=== PATIENT | female | born 1980 | race Caucasian/White ===

== ENCOUNTER 2025-08-11 06:03 | Day surgery (SDC) | payer OTHER, SELFPAY ==
--- OUTSIDE RECORDS SUMMARY | 2025-07-17 11:30 | XMS_ITS ---
Author Organization [facility] [place] ([address]) Address [address] [place] [address] Care Team Providers Care Regional Ehs Manager Name Role Phone [facility]o [facility] Primary [facility] Provider Cassia Celine Bliss Unavailable [phone] Wilmar Hong [phone] REASON FOR VISIT BHRT Lab Review Social History Sex Assigned At : Social History Observation Description Sex Assigned At Female Encounters Encounter Location Date Provider Diagnosis [facility] [place] ([address]) [address] [place] [address] 07/17/2025 Wilmar Hong Plan Of Treatment Next Appt Details Provider Name:Wilmar Hong , 08/19/2025 08:30:00 AM, [place], [address], Provider Name:Wilmar Hong , 08/26/2025 08:30:00 AM, [place], [address], Provider Name:Wilmar Hong , 09/02/2025 08:40:00 AM, [place], [address], Provider Name:Celine Peña , 10/14/2025 08:30:00 AM, [place], [address], Progress Notes * Alisa HERNANDEZDOB:1980 (45 yo F)Acc No.[id number]:07/17/2025 BHRT Patient: Alisa ABDI Provider: Lam Hong MD :1980 A ge:45 Y S ex:Female Date:07/17/2025 Address:[address] [place] [address] [phone] Pcp:Lucille Aragon [facility] Subjective: * Chief Complaints: * 1 . BHRT Lab Review. * Medical History: Objective: * Vitals: Assessment: Plan: * Treatment: * Billing Information: * Visit Code: * Procedure Codes: * Electronic signature of Oziel Hong MD, FAAAAI on 08/11/2025 at 06:07 AM GLOBAL PRODUCT MANAGER Sign off status: Pending * Provider: Lam Hong MD Date: 09/16/2024 Generated for Wilma roland/Massiel/eTransmitting on: 10/12/2024 06:07 AM GLOBAL PRODUCT MANAGER
--- OUTSIDE RECORDS SUMMARY | 2025-07-17 11:30 | XMS_ITS ---
Author Organization [facility] [place] ([address]) Address [address] [place] [address] Care Team Providers Care Internal Review And Audit Compliance Name Role Phone Margo DIRECTOR OF DISTANCE LEARNINGLoryLucille Primary Care Provider Cassia Celine Bliss Unavailable [phone] Wilmar Hong Unavailable [phone] REASON FOR VISIT BHRT Pellet Insertion #, Consent forms signed Social History Sex Assigned At : Social History Observation Description Sex Assigned At Female Problems Problem Type SNOMED Code ICD Code Onset Dates Problem Status W/U Status Risk Notes Problem Hypothyroidism (31063715) Hypothyroidism, unspecified (E03.9) Active confirmed Problem Vitamin D deficiency (22201471) Vitamin D deficiency, unspecified (E55.9) Active confirmed Encounters Encounter Location Date Provider Diagnosis [facility] ([address]) [address] [place] [address] 07/17/2025 Wilmar Hong Abnormal weight gain R63.5 ; Hormone replacement therapy Z79.890 ; Irritability and anger R45.4 ; Other amnesia R41.3 ; Hypothyroidism, unspecified E03.9 and Vitamin D deficiency, unspecified E55.9 Assessments Encounter Date Diagnosis (ICD Code) Assessment Notes Treatment Notes Treatment Clinical Notes Section Notes 07/17/2025 Abnormal weight gain (ICD-10 - R63.5) 07/17/2025 Hormone replacement therapy (ICD-10 - Z79.890) Pellet Insertion # today, Post-pellet labs due in 14 weeks, or around Pellet # due in 4 months or around Placed today 07/17/2025 Irritability and anger (ICD-10 - R45.4) 07/17/2025 Other amnesia (ICD-10 - R41.3) 07/17/2025 Hypothyroidism, unspecified (ICD-10 - E03.9) 07/17/2025 Vitamin D deficiency, unspecified (ICD-10 - E55.9) Plan Of Treatment Treatment Notes Assessment Notes Hormone replacement therapy Pellet Insertion # today, Post-pellet labs due in 14 weeks, or around Pellet # due in 4 months or around Placed today Next Appt Details Follow Up: 14 weeks, 16 week s, Reason: BHRT Post-Pellet Labs,BHRT Pellet Insertion Provider Name:Wilmar Hong , 08/19/2025 08:30:00 AM, [place], [address], Provider Name:Wilmar Hong , 08/26/2025 08:30:00 AM, [facility] [place], [address], Provider Name:Wilmar Hong , 09/02/2025 08:40:00 AM, [facility] [place] [address] [place], [address], Provider Name:Celine Marilynn Peña , 10/14/2025 08:30:00 AM, [facility] [place] [address], [address], Progress Notes * Alisa HERNANDEZDOB:1980 (45 yo F)Acc No.[id number]:07/17/2025 EP Pellet Insertion Patient: Alisa ABDI Provider: Lam Hong MD :1980 A ge:45 Y S ex:Female Date:07/17/2025 Address:[address] [place] [address], [phone] Pcp:RENÉE Negrete Subjective: * Chief Complaints: * 1 . BHRT Pellet Insertion #. 2. Consent forms signed. * HPI: * Introduction: HPI: year-old WF on BHRT, here for pellet #. S ee CDSS L ast pellet was D IM I odine O ther Supplements T [place], she reports no fevers, chills, night sweats or other constitutional symptoms. The risks, benefits & alternatives were discussed regarding available treatment options. A treatment path was determined after reviewing the patients medical records, our verbal discussions and via joint decision-making Consents for our planned treatments were signed and are on file . * Medical History: Objective: * Vitals: Assessment: * Assessment: 1. H ormone replacement therapy - Z79.890 (Primary) 2 . A bnormal weight gain - R63.5 3 . I rritability and anger - R45.4 4 . O ther amnesia - R41.3 5 . H ypothyroidism, unspecified - E03.9 6 . V itamin D deficiency, unspecified - E55.9 Plan: * Treatment: * Follow Up: 1 4 weeks, 16 weeks (Reason: BHRT Post-Pellet Labs,BHRT Pellet Insertion) * Billing Information: * Visit Code: * Procedure Codes: 74832 Biote Female Pellet Insertion Procedure. QU601 Biote Expanded Female Post Pellet if TX Thyroid HRT. * Electronic signature of Patradha Hong MD, FAAAAI on 08/11/2025 at 06:06 AM REGISTERED NURSE AMBULATORY Sign off status: Pending * Provider: Lam Hong MD Date: 09/16/2024 Generated for Melissai luan/Massiel/Reginalditting on: 10/12/2024 06:06 AM REGISTERED NURSE AMBULATORY History and Physical Notes * HPI (History of Present Illness) Category Sub-Category Detail Notes Category Not es *Introduction HPI: year-old WF on B HRT, here for pellet #. See CDSS Last pellet was DIM Iodine Other Supplements Today, she reports no fevers, chills, night sweats or other constitutional symptoms The risks, benefits & alternatives were discussed regarding available treatment options. A treatment path was determined after reviewing the patients medical records, our verbal discussions and via joint decision-making Consents for our planned treatments were signed and are on file
[2025-08-06 11:37] VITALS: BMI 32.0
--- NOTE | 2025-08-06 11:55 | SUR.PREOP ---
[facility] has started construction of its new state of the art ER which will open Spring 2026. With this, we anticipate parking may be a challenge for some our surgical patients and families. Parking spaces are limited but are available for all Surgical, obstetrics, and ER patients sharing this lot. If you arrive and find you are having a hard time finding a parking space, please note that we understand the challenges, please drive around the hospital and park near Hospital Entrance 1. When you enter this entrance, you can ask a volunteer to direct or take you back to the surgical waiting area to check in. We appreciate everyone?s understanding of these expected challenges while we build for your future. Report to the Outpatient Waiting Room, entrance under the green pavilion located off [address], at time ____6am___ on date ___08/11/25____. Planned Procedure Time: ____730____.? Time changes happen often and if your time is changed the preop area will call you the afternoon before. - You and your visitor will be asked to self-screen and do not enter if you have any COVID symptoms. Please call surgeon if you need to reschedule. - A mask is optional within the hospital at this time. Patients may have clear liquids (water, carbonated beverages, clear teas, apple juice) until 3 hours prior to surgery with a maximum of 20 ounces. - No food from midnight until time of surgery and no smoking, or chewing tobacco (or any form of nicotine). No chewing gum, candy or mints. Take only the following medications with a SIP of water on the morning of surgery: NA DO NOT STOP ANY OF YOUR OTHER PRESCRIPTION MEDICATIONS PRIOR TO SURGERY EXCEPT THE FOLLOWING Hold all vitamins and supplements for 3 days per anesthesiologist. stop 08/08/25 multi vitamin Medications to discontinue per physician NA Date to take last dose Please no make-up, nail turkmen, hairspray, perfume, deodorant, or body powder the day of surgery.? No jewelry (including any body piercings) or valuables the day of surgery, leave them at home.? Please take a shower or bath the night before, or the morning of, surgery with an antibacterial soap.? Wear comfortable, loose fitting clothing.? Children are encouraged to wear pajamas. - Jewelry must be removed prior to entering the operating room.? Rings and piercings that are not removed may be cut off. - The hospital will not accept responsibility for valuables.? - Please leave all valuables, including medications, at home the day of surgery. If you are going home after surgery, a licensed drivers license examiner must drive you home.? - NO public transportation without another adult if you receive anesthesia. - We recommend that an adult stay with you for 24 hours following discharge. - We also recommend that you do not drive, make important decision, drink alcoholic beverages, or take any drugs that were not prescribed by your health care provider for at least 24 hours after your discharge time. Follow any additional instructions given to you from your surgeon. Telephone instructions given to patient ____and asked if any additional questions and then verbalized understanding. Patient advised to call surgeon office or pre surgery nurse liaison [phone] if any additional questions.
--- OUTSIDE RECORDS SUMMARY | 2025-08-11 06:06 | XMS_ITS | Encounter Summary ---
Author Organization [facility] Address [address] [place] [address] Care Team Providers Care Bottling Line Attendant Name Role Phone Sharron Perla MD Primary Care Provider [phone] Landry Mendoza NP Primary Care Provider + Lucille Aragon [facility] Primary Care Provider + Encounter Details Date Type Department Care Team (Late st Contact Info) Description 06/05/2022 BillMyParentst Message Enc [facility] - [place] [address] [place] [address] [phone] Bj Ann MD [address] [place], [place] [address] [phone] Question Social History Tobacco Use Types Packs/Day Years Used Date Smoking Tobacco: Former Smokeless Tobacco: Never Comments:former smoker Alcohol Use Standard Drinks/Week Comments Not Currently 0 (1 standard drink = 0.6 oz pur e alcohol) NA PHQ-2 Answer Date Recorded PHQ-2 Score - If the patient scores above 3, please move on to questions 3-9 0 05/30/2022 Comments No Sex and Gender Information Value Date Recorded Sex Assigned at Female 05/10/2023 10:06 AM CDT Legal Sex Female 8:16 PM CDT Gender Identity Female 05/10/2023 10:06 AM CDT Sexual Orientation Straight 05/10/2023 10 :06 AM CDT COVID-19 Exposure Response Date Recorded In the last 10 days, have yo u been in contact with someone who was confirmed or suspected to have Coronavirus/COVID-19? No / Unsure 05/30/2022 1:11 PM CDT documented as of this encounter Plan of Treatment Upcoming Encounters Date Type Department Care Team (Late st Contact Info) Description 09/01/2025 8:00 AM CENTRAL OFFICE MAINTAINER Appointment [facility] [address] [place], [place] [phone] Lucille Aragon, [facility]- [address] [facility], [address] [place] [address] documented as of this encounter Visit Diagnoses Not on filedocumented in this encounter Care Teams Bottling Line Attendant Relationship Specialty Start Date End Date Sharron Perla MD PCP - General FAMILY PRACTICE 05/22/19 11/28/22 Landry Mendoza NP [facility] [place] [address] PCP - General UNKNOWN PHYSICIAN SPECIALTY 11/29/22 Lucille Aragon, [facility]- [address] [place] [address] PCP - General NURSE PRACTITIONER 04/11/23 documented as of this encounter
--- OUTSIDE RECORDS SUMMARY | 2025-08-11 06:06 | XMS_ITS | Encounter Summary ---
Author Organization [facility] Address [address] [place] [address] Care Team Providers Care Sorting And Folding Supervisor Name Role Phone Lucille Aragon [facility] Primary Care Provider + Encounter Details Date Type Department Care Team (Late st Contact Info) Description 04/18/2023 [email or web address] [address] [place] [address] Lucille Aragon, [facility] [address] [facility], [address] [place] [address] Question Social History Tobacco Use Types Packs/Day Years Used Date Smoking Tobacco: Former Smokeless Tobacco: Never Comments:former smoker Alcohol Use Standard Drinks/Week Comments Not Currently 0 (1 standard drink = 0.6 oz pur e alcohol) NA PHQ-2 Answer Date Recorded Patient Health Questionnaire-2 Score 0 04/11/2023 Comments No Sex and Gender Information Value Date Recorded Sex Assigned at Female 05/10/2023 10:06 AM CDT Legal Sex Female 8:16 PM CDT Gender Identity Female 05/10/2023 10:06 AM CDT Sexual Orientation Straight 05/10/2023 10 :06 AM CDT documented as of this encounter Plan of Treatment Upcoming Encounters Date Type Department Care Team (Late st Contact Info) Description 09/01/2025 8:00 AM DEPUTY SHERIFF Appointment [facility] [address] [place], [place] [phone] Lucille Aragon, [facility] [address] [facility], [address] [place] [address] documented as of this encounter Visit Diagnoses Not on filedocumented in this encounter Care Teams Sorting And Folding Supervisor Relationship Specialty Start Date End Date Lucille Aragon, [facility] [address] [place] [address] PCP - General NURSE PRACTITIONER 04/11/23 documented as of this encounter
--- OUTSIDE RECORDS SUMMARY | 2025-08-11 06:06 | XMS_ITS | Encounter Summary ---
Author Organization [facility] Address [address] [place] [address] Care Team Providers Care Sew Out Operator Name Role Phone Lucille Aragon [facility] Primary Care Provider + Encounter Details Date Type Department Care Team (Late st Contact Info) Description 04/12/2023 [employer] [facility] [address] [place] [address] Lucille Aragon, [facility] [address] [facility], [address] [place] [address] Lab results Social History Tobacco Use Types Packs/Day Years [...] st Contact Info) Description 09/01/2025 8:00 AM LEAD SEWAGE PLANT OPERATOR Appointment [facility] [address] [place], [place] [phone] Lucille Aragon, [facility] [address] [facility], [address] [place] [address] documented as of this encounter Visit Diagnoses Not on filedocumented in this encounter Care Teams Sew Out Operator Relationship Specialty Start Date End Date Lucille Aragon, [facility] [address] [place] [address] PCP - General NURSE PRACTITIONER 04/11/23 documented as of this encounter
--- OUTSIDE RECORDS SUMMARY | 2025-08-11 06:07 | XMS_ITS | Encounter Summary ---
Author Organization [facility] Address [address] [place] [address] Care Team Providers Care Mathematics Instructor Name Role Phone Unavailable Primary Care Provider Unavailabl e Encounter Details Date Type Department Care Team (Late st Contact Info) Description 05/27/2025 Lab Requisition [facility] - DermPath Lab [address] [facility], [place] [phone] Silvia Mane MD [address] [facility] [address] [place] [address] Basal cell carcinoma of skin of scalp and neck Social History Tobacco Use Types Packs/Day Years Used Date Smoking Tobacco: Never Assessed Comments Unknown Sex and Gender Information Value Date Recorded Sex Assigned at Not on file Legal Sex Female 5:03 PM MOBILE HEAVY EQUIPMENT MECHANIC Gender Identity Not on file Sexual Orientation Not on file documented as of this encounter Plan of Treatment Not on file documented as of this encounter Procedures Procedure Name Priority Date/Time Associated Diagnosis Comments DERMATOPATHOLOGY Routine 05/27/2025 11:3 0 AM CDT Basal cell carcinoma of skin of scalp and neck documented in this encounter Results * DERMATOPATHOLOGY (05/27/2025 11:30 AM CDT) Case Report Dermatopathology Report Case: [id number] Authorizing Provider: Silvia Mane MD Collected: 05/27/2025 11:30 AM Ordering Location: [facility] - Received: 05/28/2025 01:43 PM DermPath Lab Pathologist: Hali Parada MD Specimen: Skin, left clavicle skin 3:12 PM CDT DERMATOPATHOLOGY LABORATORY Final Diagnosis Specimen A. SKIN, left clavicle skin: DERMAL SCAR RESIDUAL BASAL CELL CARCINOMA NOT IDENTIFIED (L90.5) 3:12 PM CDT DERMATOPATHOLOGY LABORATORY at 1512 CDT Clinical History BCC. Check margins 3:12 PM CDT DERMATOPATHOLOGY LABORATORY Gross Description Specimen A: Received is one formalin filled container labeled with the patient's name and designated left clavicle skin.The specimen consists of an ellipse measuring 32x9x7 mm and is oriented with the suture/notch at the 12 o'clock position not labeled on the requisition. The 12 to 6 o'clock margin is inked green. The 6 o'clock to 12 o'clock margin is inked red. The 12 o'clock tip is submitted in cassette 1. The 6 o'clock tip is submitted in cassette 2. The remainder of the ellipse is serially sectioned and submitted in cassettes 3-4. Jar 0. 3:12 PM CDT DERMATOPATHOLOGY LABORATORY Microscopic Description Specimen A. SKIN, left clavicle skin: There are fibroblasts and collagen bundles oriented parallel to the skin surface. There are elongated blood vessels, some of which are oriented perpendicular to the skin surface. No basal cell carcinoma is identified. 3:12 PM CDT DERMATOPATHOLOGY LABORATORY Disclaimer An external and internal positive and negative controls are appropriate for the histochemical, immunohistochemical and immunofluorescence stain(s) in this case (if any), except where stated explicitly. The performance characteristics of the stain(s) cited in this report were developed and its performance characteristic determined by the Dermatopathology Laboratory at [facility], directed by Dr. Brittany Marvin. These tests need not be, and therefore are not, approved by the [place] Food and Drug Administration. The tests are used for clinical purposes. Billing Codes Specimen Charges Stain Charges 37472 1 3:12 PM CDT DERMATOPATHOLOGY LABORATORY Embedded Images 3:12 PM CDT DERMATOPATHOLOGY LABORATORY Pathology/Cytolo gy TISSUE SPECIMEN FROM SKIN / Unknown 05/27/2025 11:30 AM CDT 05/28/2025 1:43 PM CDT us Silvia Mane MD LAB - PATHOLOGY/CYTOLOGY ORD ERABLES Final Result DERMATOPATHOLOGY LABORATORY [facility] - Department of Dermatology [address], [address] [phone] documented in this encounter Visit Diagnoses Diagnosis Basal cell carcinoma of skin of scalp and neck Basal cell carcinoma of scalp and skin of neck documented in this encounter
--- OUTSIDE RECORDS SUMMARY | 2025-08-11 06:07 | XMS_ITS | Patient Health Record ---
Author Organization [facility] [place] ([address]) Address [address] [place] [address] Care Team Providers Care Senior Medical Director Name Role Phone Margo ACOSTAP-Lucille Primary Care Provider Celine Vera Unavailable [phone] Wilmar Hong Unavailable [phone] Allergies Allergen (clinical drug ingredient) Drug/Non Drug Allergy documented on EMR Reaction Allergy Type Onset Date Status clindamycin Clindamycin Facial Redness/Sweating Drug Allergy Active Reason For Referral No Information Medications Medication SIG (Take, Route, Frequency, Duration) Notes Start Date End Date Status Montelukast Sodium 10 MG 1 tablet Orally Once a day; Duration: 90 days Active Ferrous Sulfate 325 (65 Fe) MG 1 tab(s) orally every other day Not-Taking CETIRIZINE HYDROCHLORIDE 10 mg 1 tab(s) orally once a day; Duration: 90 days Active Singulair 10 MG 1 tab(s) orally once a day; Duration: 90 days Active predniSONE 20 MG patient to call md for instruction on dose. orally Call MD for frequency; Duration: 90 days Not-Taking NASAL WASHES N/A as directed intranasally as needed; Duration: 30 Active Cetirizine HCl 10 MG 1 tab(s) orally once a day; Duration: 90 days Active EPIPEN 2-KALA 0.3 mg 0.3 mg intramuscularly once; Duration: 30 days Active Fluticasone Propionate 50 MCG/ACT 2 spray(s) intranasally once a day; Duration: 90 days Active Ventolin HFA 108 (90 Base) MCG/ACT 2 puff(s) inhaled Qday, PRN; Duration: 30 day(s) Not-Taking Ventolin HFA 108 (90 Base) MCG/ACT 2 puffs Inhalation every 4 hrs as needed; Duration: 30 days Active FLUTICASONE PROPIONATE 50 mcg/inh 2 spray(s) intranasally once a day; Duration: 90 days Not-Taking Famotidine 40 MG 1 tablet Orally Once a day, before shots; Duration: 90 days Active Azelastine HCl 137 MCG/SPRAY 2 spray(s) intranasally BID, PRN; Duration: 90 days Not-Taking Fluticasone Propionate 50 MCG/ACT 2 sprays in each nostril Nasally Twice a day; Duration: 90 days Active SIT (TRADITIONAL) variable per schedule SC per schedule Active EpiPen 2-Kala 0.3 MG/0.3ML 0.3 mg intramuscularly once; Duration: 1 dose(s) Active PATADAY ONCE DAILY RELIEF EXTRA STRENGTH 0.7% 1 gtt in each affected eye once a day; Duration: 90 days Active Probiotic Formula *Please review and pick correct strength-formula tion from [employer] options. If intended option is not shown, discontinue and re-order from Quick Search* Active Triamcinolone Acetonide 0.1 % 1 application Externally Two times a Week; Duration: 5 days Active Vitamin D2 200 MCG/ML 0.05 ML ORALLY ONCE A DAY; Duration: 30 DAY(S) takes one daily *Please review and pick correct strength-formula tion from [employer] options. If intended option is not shown, discontinue and re-order from Quick Search* Active Azelastine HCl 137 MCG/SPRAY 1 puff in each nostril Nasally Twice a day; Duration: 90 days Active SINGULAIR 10 mg 1 tab(s) orally once a day; Duration: 90 days Not-Taking Immunizations Vaccine Route Administration Date Status Comme nts DTaP < 7 y/o Unknown 04/06/1984 Administered Portal Inf ormation Hepatitis B (20 and more) Unknown 12/05/2001 Administer ed Portal Information NOC Influenza-Afluria PFS Unknown 06/29/2016 Administer ed Portal Information NOC Tdap Unknown 04/03/2012 Administered Portal Infor mation FluZone Quadrivalent Unknown 06/29/2017 Administered Po rtal Information NOC Fluzone Quadrivalent Unknown 06/05/2018 Refused NOC Fluzone Quadrivalent Unknown 06/15/2018 Administere d NOC Fluzone Quadrivalent Unknown 06/06/2020 Administere d Flucelvax Unknown 2019 Refused Flucelvax Unknown 08/12/2019 Administered Covid 19 (Pfizer) Unknown 12/04/2020 Administered Social History Tobacco Use: Social History Observation Description Date Details (start date - stop date) Former Smoker NA - NA Sex Assigned At : Social History Observation Description Sex Assigned At Female Tobacco Control (Standard) Question Answer Notes Tobacco use: Former smoker AUDIT-C (Standard) Question Answer Notes Did you have a drink containing alcohol in the p ast year? No Points 0 Interpretation Negative Problems Problem Type SNOMED Code ICD Code Onset Dates Problem Status W/U Status Risk Notes Problem Wheezing (10220220) Wheezing (R06.2) Active confirmed Problem Vitamin D deficiency (62179512) Vitamin D deficiency, unspecified (E55.9) Active confirmed Problem Allergy to penicillin (94534107) Allergy status to penicillin (Z88.0) Active confirmed Problem Eruption of skin (466702725) Rash and other nonspecific skin eruption (R21) Active confirmed Problem Hypothyroidism (83946403) Hypothyroidism, unspecified (E03.9) Active confirmed Problem Affective psychosis (063461623) Unspecified mood [affective] disorder (F39) Active confirmed Problem Adjustment disorder with anxiety (64227888) Adjustment disorder with anxiety (F43.22) Active confirmed Problem Chronic allergic conjunctivitis (40522865) Other chronic allergic conjunctivitis (H10.45) Active confirmed Problem Allergic rhinitis caused by pollen (disorder) (43080831) Allergic rhinitis due to pollen (J30.1) Active confirmed Problem Allergic rhinitis caused by animal hair and dander (748490742359883) Allergic rhinitis due to animal (cat) (dog) hair and dander (J30.81) Active confirmed Problem Allergic rhinitis (80995751) Other allergic rhinitis (J30.89) Active confirmed Problem Humidifier lung (14288415) Air conditioner and humidifier lung (J67.7) Active confirmed Problem Ingestion dermatitis caused by food (617416118) Dermatitis due to ingested food (L27.2) Active confirmed Problem Cough (93965938) Cough (R05) Active confirmed Problem Dyspnea (319371717) Dyspnea, unspecified (R06.00) Active confirmed Problem Amnesia (06223101) Other amnesia (R41.3) Active confirmed Problem Adverse reaction to drug (65899208) Adverse effect of penicillins, subsequent encounter (T36.0X5D) Active confirmed Problem Adverse reaction to drug (11959125) Unspecified adverse effect of drug or medicament, initial encounter (T88.7XXA) Active confirmed Problem Adverse reaction caused by drug (disorder) (67388974) Unspecified adverse effect of drug or medicament, subsequent encounter (T88.7XXD) Active confirmed Problem Allergic rhinitis caused by pollen (disorder) (50573255) Allergic rhinitis due to pollen (J30.1) Active confirmed Problem Allergic rhinitis caused by animal hair and dander (734282123824080) Allergic rhinitis due to animal (cat) (dog) hair and dander (J30.81) Active confirmed Problem Allergic rhinitis (78710251) Other allergic rhinitis (J30.89) Active confirmed Problem Chronic allergic conjunctivitis (01694396) Other chronic allergic conjunctivitis (H10.45) Active confirmed Problem Allergy to penicillin (00548952) Allergy status to penicillin (Z88.0) Active confirmed Vital Signs Respiratory Rate 17 /min 04/08/2025 Oximetry 97 % 04/08/2025 Blood pressure diastolic 76 mm Hg 04/08/2025 Height 68 in 04/08/2025 Blood pressure systolic 113 mm Hg 04/08/2025 Weight 208 lbs 04/08/2025 BMI 31.62 kg/m2 04/08/2025 Encounters Encounter Location Date Provider Diagnosis [facility] [place] ([address]) [address] [place] [address] 07/02/2025 Wilmar Hong Decreased libido R68 .82 ; Abnormal weight gain R63.5 ; Irritability and anger R45.4 ; Unspecified mood [affective] disorder F39 ; Adjustment disorder with anxiety F43.22 ; Other fatigue R53.83 ; Other malaise R53.81 ; Other amnesia R41.3 and Pain in unspecified joint M25.[address] [address] 09/10/2024 Wilmar Hong Allergic rhinitis du e to pollen J30.1 ; Other allergic rhinitis J30.89 ; Allergic rhinitis due to animal (cat) (dog) hair and dander J30.81 and Other chronic allergic conjunctivitis H10.45 [facility] [address] [place] [address] 10/01/2024 Celine Peña Allergic rhinitis du e to pollen J30.1 ; Cough R05 ; Wheezing R06.2 ; Allergic rhinitis due to animal (cat) (dog) hair and dander J30.81 ; Other allergic rhinitis J30.89 ; Other chronic allergic conjunctivitis H10.45 ; Dermatitis due to ingested food L27.2 ; Unspecified adverse effect of drug or medicament, subsequent encounter T88.7XXD and Rash and other nonspecific skin eruption R21 [facility] [place] [address] [place] [address] 10/29/2024 Wilmar Hong Allergic rhinitis du e to pollen J30.1 ; Other allergic rhinitis J30.89 ; Allergic rhinitis due to animal (cat) (dog) hair and dander J30.81 and Other chronic allergic conjunctivitis H10.45 [facility] [place] [address] [place] [address] 11/05/2024 Wilmar Hong Allergic rhinitis du e to pollen J30.1 ; Other allergic rhinitis J30.89 ; Allergic rhinitis due to animal (cat) (dog) hair and dander J30.81 and Other chronic allergic conjunctivitis H10.45 [facility] [place] [address] [place] [address] 11/12/2024 Wilmar Hong Allergic rhinitis du e to pollen J30.1 ; Other allergic rhinitis J30.89 ; Allergic rhinitis due to animal (cat) (dog) hair and dander J30.81 and Other chronic allergic conjunctivitis H10.45 [facility] [place] [address] [place] [address] 12/03/2024 Wilmar Hong Allergic rhinitis du e to pollen J30.1 ; Other allergic rhinitis J30.89 ; Allergic rhinitis due to animal (cat) (dog) hair and dander J30.81 and Other chronic allergic conjunctivitis H10.45 [facility] [place] [address] [place] [address] 01/02/2025 Wilmar Hong Allergic rhinitis du e to pollen J30.1 ; Other allergic rhinitis J30.89 ; Allergic rhinitis due to animal (cat) (dog) hair and dander J30.81 and Other chronic allergic conjunctivitis H10.45 [facility] [place] [address] [place] [address] 01/30/2025 Wilmar Hong Allergic rhinitis du e to pollen J30.1 ; Other allergic rhinitis J30.89 ; Allergic rhinitis due to animal (cat) (dog) hair and dander J30.81 and Other chronic allergic conjunctivitis H10.45 [facility] [place] [address] [place] [address] 02/20/2025 Wilmar Hong Allergic rhinitis du e to pollen J30.1 ; Other allergic rhinitis J30.89 ; Allergic rhinitis due to animal (cat) (dog) hair and dander J30.81 and Other chronic allergic conjunctivitis H10.45 [facility] [place] [address] [place] [address] 03/11/2025 Wilmar Hong Allergic rhinitis du e to pollen J30.1 ; Other allergic rhinitis J30.89 ; Allergic rhinitis due to animal (cat) (dog) hair and dander J30.81 and Other chronic allergic conjunctivitis H10.45 [facility] - [place] [address] [place] [address] 04/08/2025 Celine Peña Allergic rhinitis du e to pollen J30.1 ; Cough R05 ; Wheezing R06.2 ; Allergic rhinitis due to animal (cat) (dog) hair and dander J30.81 ; Other allergic rhinitis J30.89 ; Other chronic allergic conjunctivitis H10.45 ; Dermatitis due to ingested food L27.2 ; Unspecified adverse effect of drug or medicament, subsequent encounter T88.7XXD and Rash and other nonspecific skin eruption R21 [facility] [place] [address] [place] [address] 05/13/2025 Wilmar Hong Allergic rhinitis du e to pollen J30.1 ; Other allergic rhinitis J30.89 ; Allergic rhinitis due to animal (cat) (dog) hair and dander J30.81 and Other chronic allergic conjunctivitis H10.45 [facility] [place] [address] 06/10/2025 Wilmar Hong Allergic rhinitis du e to pollen J30.1 ; Other allergic rhinitis J30.89 ; Allergic rhinitis due to animal (cat) (dog) hair and dander J30.81 and Other chronic allergic conjunctivitis H10.[address] [address] 07/01/2025 Wilmar Hong Allergic rhinitis du e to pollen J30.1 ; Other allergic rhinitis J30.89 ; Allergic rhinitis due to animal (cat) (dog) hair and dander J30.81 and Other chronic allergic conjunctivitis H10.[address] [address] 07/22/2025 Wilmar Hong Allergic rhinitis du e to pollen J30.1 ; Other allergic rhinitis J30.89 ; Allergic rhinitis due to animal (cat) (dog) hair and dander J30.81 and Other chronic allergic conjunctivitis H10.45 [facility] [place] ([address]) [address] [address] 07/02/2025 Celine Peña [address] [address] 11/13/2024 Celine Peña Assessments Encounter Date Diagnosis (ICD Code) Assessment Notes Treatment Notes Treatment Clinical Notes Section Notes 09/10/2024 Allergic rhinitis due to pollen (ICD-10 - J30.1) 09/10/2024 Other allergic rhinitis (ICD-10 - J30.89) 10/01/2024 Allergic rhinitis due to pollen (ICD-10 - J30.1) Alisa clearly suffers from atopic disease based upon our prior skin testing and history. Continues avoidance, meds, and SCIT with improvement in symptoms - recent flare with harvest. Encouraged to use Astelin daily to aid in PND. Increase SCIT frequency PRN during peak seasons. Dosing received today without reaction. AIE on hand and UTD. Increasing SCIT frequency in peak seasons, PRN Discussed reformulation if symptoms remain persistent despite increased SCIT frequency Med refills provided Due to large local reaction of the R arm will reduce to 0.2 mL with this vial - doing well on triple pre-med Having less chronic sinus pressure and congestion; increase SCIT in peak seasons. Consider ENT evaluation 10/01/2024 Cough (ICD-10 - R05) History of cough, clearly caused by upper airways symptoms/post-justyna al drainage, and triggered by allergies. No recent symptoms. Last spirometry was normal. No interval FUENTES use. Continue VCD exercises PRN. Continue treatment of atopic disease. 10/29/2024 Allergic rhinitis due to pollen (ICD-10 - J30.1) 10/29/2024 Other allergic rhinitis (ICD-10 - J30.89) 11/05/2024 Allergic rhinitis due to pollen (ICD-10 - J30.1) 11/05/2024 Other allergic rhinitis (ICD-10 - J30.89) 11/12/2024 Allergic rhinitis due to pollen (ICD-10 - J30.1) 11/12/2024 Other allergic rhinitis (ICD-10 - J30.89) 12/03/2024 Allergic rhinitis due to pollen (ICD-10 - J30.1) 12/03/2024 Other allergic rhinitis (ICD-10 - J30.89) 01/02/2025 Allergic rhinitis due to pollen (ICD-10 - J30.1) 01/02/2025 Other allergic rhinitis (ICD-10 - J30.89) 01/30/2025 Allergic rhinitis due to pollen (ICD-10 - J30.1) 01/30/2025 Other allergic rhinitis (ICD-10 - J30.89) 02/20/2025 Allergic rhinitis due to pollen (ICD-10 - J30.1) 02/20/2025 Other allergic rhinitis (ICD-10 - J30.89) 03/11/2025 Allergic rhinitis due to pollen (ICD-10 - J30.1) 03/11/2025 Other allergic rhinitis (ICD-10 - J30.89) 04/08/2025 Allergic rhinitis due to pollen (ICD-10 - J30.1) Alisa clearly suffers from atopic disease based upon our prior skin testing and history. Continues avoidance, meds, and SCIT with improvement in symptoms - recent flare with harvest. Encouraged to use Astelin daily to aid in PND. Increase SCIT frequency PRN during peak seasons. Dosing received today without reaction. AIE on hand and UTD. Increasing SCIT frequency in peak seasons, PRN Discussed reformulation if symptoms remain persistent despite increased SCIT frequency Med refills provided Due to large local reaction of the R arm was previously reducec to 0.2 mL with this vial - doing well on triple pre-med Having less chronic sinus pressure and congestion; increase SCIT in peak seasons. Consider ENT evaluation Will try to reduce meds this year, first hold Singulair, continue pre-medonly 04/08/2025 Cough (ICD-10 - R05) History of cough, clearly caused by upper airways symptoms/post-justyna al drainage, and triggered by allergies. No recent symptoms. Last spirometry was normal. No interval FUENTES use. Continue VCD exercises PRN. Continue treatment of atopic disease. 05/13/2025 Allergic rhinitis due to pollen (ICD-10 - J30.1) 05/13/2025 Other allergic rhinitis (ICD-10 - J30.89) 06/10/2025 Allergic rhinitis due to pollen (ICD-10 - J30.1) 06/10/2025 Other allergic rhinitis (ICD-10 - J30.89) 07/01/2025 Allergic rhinitis due to pollen (ICD-10 - J30.1) 07/01/2025 Other allergic rhinitis (ICD-10 - J30.89) 07/02/2025 Decreased libido (ICD-10 - R68.82) Labs ordered. Will return to discuss results in 2 weeks. Consider Thyroid and Hormone replacement depending on results. 07/02/2025 Abnormal weight gain (ICD-10 - R63.5) 07/22/2025 Allergic rhinitis due to pollen (ICD-10 - J30.1) 07/22/2025 Other allergic rhinitis (ICD-10 - J30.89) 07/22/2025 Allergic rhinitis due to animal (cat) (dog) hair and dander (ICD-10 - J30.81) 07/02/2025 Irritability and anger (ICD-10 - R45.4) 07/01/2025 Allergic rhinitis due to animal (cat) (dog) hair and dander (ICD-10 - J30.81) 06/10/2025 Allergic rhinitis due to animal (cat) (dog) hair and dander (ICD-10 - J30.81) 05/13/2025 Allergic rhinitis due to animal (cat) (dog) hair and dander (ICD-10 - J30.81) 04/08/2025 Wheezing (ICD-10 - R06.2) No recent symptoms 03/11/2025 Allergic rhinitis due to animal (cat) (dog) hair and dander (ICD-10 - J30.81) 02/20/2025 Allergic rhinitis due to animal (cat) (dog) hair and dander (ICD-10 - J30.81) 01/30/2025 Allergic rhinitis due to animal (cat) (dog) hair and dander (ICD-10 - J30.81) 01/02/2025 Allergic rhinitis due to animal (cat) (dog) hair and dander (ICD-10 - J30.81) 12/03/2024 Allergic rhinitis due to animal (cat) (dog) hair and dander (ICD-10 - J30.81) 11/12/2024 Allergic rhinitis due to animal (cat) (dog) hair and dander (ICD-10 - J30.81) 11/05/2024 Allergic rhinitis due to animal (cat) (dog) hair and dander (ICD-10 - J30.81) 10/29/2024 Allergic rhinitis due to animal (cat) (dog) hair and dander (ICD-10 - J30.81) 10/01/2024 Wheezing (ICD-10 - R06.2) No recent symptoms 09/10/2024 Allergic rhinitis due to animal (cat) (dog) hair and dander (ICD-10 - J30.81) 09/10/2024 Other chronic allergic conjunctivitis (ICD-10 - H10.45) 10/01/2024 Allergic rhinitis due to animal (cat) (dog) hair and dander (ICD-10 - J30.81) Follow allergen avoidance, meds and continue SCIT as an adjunctive treatment to current regimen. Continue to premedicate prior to exposure. Consider reformulation 11/05/2024 Other chronic allergic conjunctivitis (ICD-10 - H10.45) 11/12/2024 Other chronic allergic conjunctivitis (ICD-10 - H10.45) 12/03/2024 Other chronic allergic conjunctivitis (ICD-10 - H10.45) 01/02/2025 Other chronic allergic conjunctivitis (ICD-10 - H10.45) 01/30/2025 Other chronic allergic conjunctivitis (ICD-10 - H10.45) 02/20/2025 Other chronic allergic conjunctivitis (ICD-10 - H10.45) 03/11/2025 Other chronic allergic conjunctivitis (ICD-10 - H10.45) 10/29/2024 Other chronic allergic conjunctivitis (ICD-10 - H10.45) 05/13/2025 Other chronic allergic conjunctivitis (ICD-10 - H10.45) 04/08/2025 Allergic rhinitis due to animal (cat) (dog) hair and dander (ICD-10 - J30.81) Follow allergen avoidance, meds and continue SCIT as an adjunctive treatment to current regimen. Continue to premedicate prior to exposure. Consider reformulation 06/10/2025 Other chronic allergic conjunctivitis (ICD-10 - H10.45) 07/01/2025 Other chronic allergic conjunctivitis (ICD-10 - H10.45) 07/02/2025 Unspecified mood [affective] disorder (ICD-10 - F39) 07/22/2025 Other chronic allergic conjunctivitis (ICD-10 - H10.45) 07/02/2025 Adjustment disorder with anxiety (ICD-10 - F43.22) 04/08/2025 Other allergic rhinitis (ICD-10 - J30.89) Follow allergen avoidance, meds and continue SCIT as an adjunctive treatment to current regimen 10/01/2024 Other allergic rhinitis (ICD-10 - J30.89) Follow allergen avoidance, meds and continue SCIT as an adjunctive treatment to current regimen 10/01/2024 Other chronic allergic conjunctivitis (ICD-10 - H10.45) Given ocular signs and symptoms I encouraged allergy avoidance measures and meds as above. -Continue SCIT as an adjunctive measure -change to Pataday -ocular symptoms are likely due to dryness - start with Systane Preservative free rewetting drop 04/08/2025 Other chronic allergic conjunctivitis (ICD-10 - H10.45) Given ocular signs and symptoms I encouraged allergy avoidance measures and meds as above. -Continue SCIT as an adjunctive measure -change to Pataday -ocular symptoms are likely due to dryness - start with Systane Preservative free rewetting drop 07/02/2025 Other fatigue (ICD-10 - R53.83) 07/02/2025 Other malaise (ICD-10 - R53.81) 04/08/2025 Dermatitis due to ingested food (ICD-10 - L27.2) Prior to my care, Alisa described a history of oral itching and rash around her mouth occurring after eating shrimp and crab. Previously attempted to do SPT to shellfish, but due to patient's dermatographism, test results were equivocal. ImmunoCAPs previously ordered but were never drawn. Since her first visit, she states her reaction was really just a severe headache, and only after eating shrimp. She is not interested in reintroduction. Given this history, IgE mediated food allergy is unlikely. Continue avoidance as desired. Symptoms after tilapia also atypical of food allergy especially as she has eaten other fish without issues. She is content with avoidance. 10/01/2024 Dermatitis due to ingested food (ICD-10 - L27.2) Prior to my care, Alisa described a history of oral itching and rash around her mouth occurring after eating shrimp and crab. Previously attempted to do SPT to shellfish, but due to patient's dermatographism, test results were equivocal. ImmunoCAPs previously ordered but were never drawn. Since her first visit, she states her reaction was really just a severe headache, and only after eating shrimp. She is not interested in reintroduction. Given this history, IgE mediated food allergy is unlikely. Continue avoidance as desired. Symptoms after tilapia also atypical of food allergy especially as she has eaten other fish without issues. She is content with avoidance. 10/01/2024 Unspecified adverse effect of drug or medicament, subsequent encounter (ICD-10 - T88.7XXD) History of hives with PCN and rash with clindamycin. She passed PCN allergy testing in 05/2019, so penicillin allergy was removed from her record and she can now take ad duncan. To date, no standardized testing exists for clindamycin allergy, so recommend strict avoidance 04/08/2025 Unspecified adverse effect of drug or medicament, subsequent encounter (ICD-10 - T88.7XXD) History of hives with PCN and rash with clindamycin. She passed PCN allergy testing in 05/2019, so penicillin allergy was removed from her record and she can now take ad duncan. To date, no standardized testing exists for clindamycin allergy, so recommend strict avoidance 07/02/2025 Other amnesia (ICD-10 - R41.3) 04/08/2025 Rash and other nonspecific skin eruption (ICD-10 - R21) Continue PRN TAC for large local reactions 07/02/2025 Pain in unspecified joint (ICD-10 - M25.50) 10/01/2024 Rash and other nonspecific skin eruption (ICD-10 - R21) Continue PRN TAC for large local reactions 10/01/2024 Other 04/08/2025 Other Plan Of Treatment Pending Test Test Name Order Date Expanded Female [id number] 2024 Next Appt Details Provider Name:Wilmar Mcdonough Hal , 08/19/2025 08:30:00 AM, [facility] [place], [address], Provider Name:Wilmar Mcdonough Hal , 08/26/2025 08:30:00 AM, [facility] [place], [address], Provider Name:Wilmar Hong , 09/02/2025 08:40:00 AM, [address] [place], [address], Provider Name:Celine Peña , 10/14/2025 08:30:00 AM, [facility] [place], [address], Insurance Providers Payer Name Payer Address Payer Phone Subscriber Number Group Number Insured Name Patient Relationship to Insured Coverage Start Date Coverage End Date formerly [facility] [place] [address] [id number] Christos Hernandez Spouse - patient is the spouse of the insured 3 Medical (General) History Medical History History ICD Code Migraine with aura, not intractable, wit hout status migrainosus Allergy status to penicillin Allergy to seafood Allergic rhinitis due to pollen Allergic rhinitis due to animal (cat) (d og) hair and dander Other allergic rhinitis Other chronic allergic conjunctivitis Cough Wheezing Rash and other nonspecific skin eruption Dermatitis due to ingested food Unspecified adverse effect of drug or me dicament, initial encounter Surgical History Surgery Date(Month/Year) Right ankle fusion 10/10/2014 Abscessed tonsil 02/10/2016 Both clubbed feet 1979
--- OUTSIDE RECORDS SUMMARY | 2025-08-11 06:07 | XMS_ITS | Clinical Summary ---
Author Organization [facility] Address [address] [facility] [place] [address] Care Team Providers Care Circuit Design Engineer Name Role Phone Unavailable Primary Care Provider Unavailabl e Source Comments [facility],non-owned Affiliates and Associated Physician Practices is amultiple site organization consisting of ambulatory clinics and hospital sitesin [place], [place], [place] and [place]. This disclosure is being madepursuant to the Care Everywhere program and may not contain all information available regarding this patient. Last updated 18.[facility] Encounters Date Type Department Care Team Description 05/27/2025 Lab Requisition [facility] [address] [place] [id number] Silvia Mane MD Basal cell carcinoma of skin of scalp and neck 05/13/[address] [facility] - Derm[facility] Lab [address] [place] [address] Kasey Mcmahan DO Neoplasm of uncertain behavior of skin from Last 3 Months Social History Tobacco Use Types Packs/Day Years Used Date Smoking Tobacco: Never Assessed Comments Unknown Sex and Gender Information Value Date Recorded Sex Assigned at Not on file Legal Sex Female 5:03 PM TRAVEL RN OR Gender Identity Not on file Sexual Orientation Not on file Plan of Treatment Health Maintenance Due Date Last Done Comments COLOGUARD (AGES 45-75) - COL ON CA SCREENING 1979 COLON MONITORING 1979 COLONOSCOPY - COLON CA SCREENING 1979 CT COLONOGRAPHY - COLON CA SCREENING 1979 Colorectal Cancer Screening 1979 FIT - COLON CA SCREENING 1979 FLEX SIG - COLON CA SCREENING 1979 LIPID TESTING 1979 MAMMOGRAM 1979 HIV SCREENING 1994 HEPATITIS C SCREENING 06/13/1997 DTAP/TDAP/TD VACCINES (1 - Tdap) 1998 HEPATITIS B VACCINE (1 of 3 - 19+ 3-dose series) 1998 Cervical Cancer Screening 2000 PAP SMEAR 2000 PAP with HPV 2009 DEPRESSION SCREENING 08/28/2024 COVID-19 VACCINE (1 - 2024-2 6 season) 2025 INFLUENZA VACCINE (#1) 2025 ZOSTER VACCINE (1 of 2) 2029 HIB VACCINE Aged Out No longer eligi ble based on patient's age to complete this topic HPV VACCINE Aged Out No longer eligi ble based on patient's age to complete this topic MENINGOCOCCAL (Group B) VACC INE SHARED DECISION-MAKING Aged Out No longer eligibl e based on patient's age to complete this topic MENINGOCOCCAL GROUPS A/C/Y/W VACCINE Aged Out No longer eligible b ased on patient's age to complete this topic PNEUMOCOCCAL VACCINE Aged Out No long er eligible based on patient's age to complete this topic Procedures Procedure Name Priority Date/Time Associated Diagnosis Comments DERMATOPATHOLOGY Routine 05/27/2025 11:3 0 AM CDT Basal cell carcinoma of skin of scalp and neck DERMATOPATHOLOGY Routine 05/13/2025 9:00 AM CDT Neoplasm of uncertain behavior of skin from Last 3 Months Results * DERMATOPATHOLOGY (05/27/2025 11:30 AM CDT) Only the most recent of2 resultswithin the time period is included. Case Report Dermatopathology Report Case: [id number] Authorizing Provider: Silvia Mane MD Collected: 05/27/2025 11:30 AM Ordering Location: [facility] - Received: 05/28/2025 01:43 PM [...] characteristic determined by the Dermatopathology Laboratory at [facility], directed by Dr. Brittany Marvin. These tests need not be, and therefore are not, approved by the [place] Food and Drug Administration. The tests are used for clinical purposes. Billing Codes Specimen Charges Stain Charges 44511 1 3:12 PM CDT DERMATOPATHOLOGY LABORATORY Embedded Images 3:12 PM CDT DERMATOPATHOLOGY LABORATORY Pathology/Cytolo gy TISSUE SPECIMEN FROM SKIN / Unknown 05/27/2025 11:30 AM CDT 05/28/2025 1:43 PM CDT Silvia Mane MD LAB - PATHOLOGY/CYTOLOGY ORD ERABLES Final Result DERMATOPATHOLOGY LABORATORY [facility] - Department of Dermatology [facility] [address] [facility] [place] [address], [facility] [phone] from Last 3 Months Insurance [facility]
--- OUTSIDE RECORDS SUMMARY | 2025-08-11 06:07 | XMS_ITS | Encounter Summary ---
Author Organization [facility] Address [address] [place] [address] Care Team Providers Care Child Center Assistant Name Role Phone Lucille Aragon [facility] Primary Care Provider + Encounter Details Date Type Department Care Team (Late st Contact Info) Description 04/01/2024 MyChart Message Enc [facility] General Surgery - [place] [address] [facility], [address] [place] [address] Valeria Yoder, DRAPERY SEWER HAND-C [address] [address] Question Social History Tobacco Use Types Packs/Day Years Used Date Smoking Tobacco: Former Passive Smoke Exposure: Never Smokeless Tobacco: Never Comments:former smoker Alcohol Use Standard Drinks/Week Comments Not Currently 0 (1 standard drink = 0.6 oz pur e alcohol) NA PHQ-2 Answer Date Recorded Patient Health Questionnaire-2 Score 0 10/16/2023 Comments No Sex and Gender Information Value Date Recorded Sex Assigned at Female 05/10/2023 10:06 AM CDT Legal Sex Female 8:16 PM CDT Gender Identity Female 05/10/2023 10:06 AM CDT Sexual Orientation Straight 05/10/2023 10 :06 AM CDT documented as of this encounter Plan of Treatment Upcoming Encounters Date Type Department Care Team (Late st Contact Info) Description 09/01/2025 8:00 AM APRICOT WASHER Appointment [facility] [address] [place] [address] Lucille Aragon, [facility] [address] [facility], [address] [place] [address] documented as of this encounter Visit Diagnoses Not on filedocumented in this encounter Care Teams Child Center Assistant Relationship Specialty Start Date End Date Lucille Aragon, [facility] [address] [place], [place] [phone] PCP - General NURSE PRACTITIONER 04/11/23 documented as of this encounter
--- OUTSIDE RECORDS SUMMARY | 2025-08-11 06:07 | XMS_ITS | Encounter Summary ---
Author Organization [facility] Address [address] [place] [address] Care Team Providers Care Inspector Subassembly Name Role Phone Lucille Aragon [facility] Primary Care Provider + Encounter Details Date Type Department Care Team (Late st Contact Info) Description 01/11/2024 [employer] [address] [place] [address] [facility] [address] [facility], [address] [place] [address] Blood tests Social History Tobacco Use Types Packs/Day Years [...] st Contact Info) Description 09/01/2025 8:00 AM LOCAL SUPERINTENDENT Appointment [facility] [address] [place] [address] Lucille Aragon, [facility] [address] [facility], [address] [place] [address] documented as of this encounter Visit Diagnoses Not on filedocumented in this encounter Care Teams Inspector Subassembly Relationship Specialty Start Date End Date Lucille Aragon, [facility] [address] [place], [place] [phone] PCP - General NURSE PRACTITIONER 04/11/23 documented as of this encounter
--- OUTSIDE RECORDS SUMMARY | 2025-08-11 06:07 | XMS_ITS | Clinical Summary ---
Author Organization [facility] Address [address] [place] [address] Care Team Providers Care Cnmt Name Role Phone MargoHeather valdeshan Miriam [facility] Primary Care Provider + Allergies Active Allergy Reactions Criticality Noted Date Comments Meloxicam GI Upset Medium 05/22/2019 Nausea, vomiting, diarrhea, cramps Medications vitamin D3, cholecalciferol, 5000 UNITS capsule 9 Active cetirizine 10 MG chewable tablet Chew 1 tablet (10 mg total) by mouth daily. Active Montelukast Sodium (SINGULAIR OR) Activ e fluticasone propionate 50 MCG/ACT nasal spray 1 spray by Nasal route daily. Active naproxen sodium (ANAPROX) 220 MG tablet Take 1 tablet (220 mg total) by mouth as needed. Active Bacillus Coagulans-Inulin (PROBIOTIC FORMULA) 1-250 BILLION-MG Cap 2 Active dicyclomine (BENTYL) 20 MG tabletIndication s:Irritable bowel syndrome with diarrhea Take 1 tablet (20 mg total) by mouth every 6 (six) hours. 360 tablet 1 3 Active olopatadine (PATADAY) 0.7 % ophthalmic solution daily. Active azelastine (ASTELIN) 0.1 % nasal spray 2 spray(s) intranasally BID, PRN for 90 days Active triamcinolone (KENALOG) 0.1 % cream Apply topically as needed (with allergy shots). 4 Active EPINEPHrine (EPIPEN 2-KALA) 0.3 MG/0.3ML injection Inject 0.3 mLs (0.3 mg total) into the muscle as needed. Active Albuterol-Budeso nide (AIRSUPRA) 90-80 MCG/ACT AerosolIndicatio ns:Mild intermittent asthma without complication (HHS/HCC) Inhale 2 puffs into the lungs every 4 (four) hours as needed. 32.1 g 1 5 Active Active Problems Problem Noted Date Diagnosed Date Diarrhea, unspecified type 03/21/2024 Right foot pain 04/10/2019 Localized osteoarthritis of right ankle 04/10/20 19 Encounters Date Type Department Care Team Description 07/07/2025 [facility] [address] [place] [address] Lucille Aragon, ZYGLO INSPECTOR- Mammogram from Last 3 Months Immunizations Immunization Administration Dates Next Due Dtap 04/06/1984 Flublok (Quadrivalent) 06/29/2017 Flucelvax 6 Months+ (Prefill ed Syringe) 06/06/2020 Hepatitis B 12/05/2001 Influenza (Generic) 06/06/2020,06/15/2018 Influenza Adult (Generic) 06/13/2023,05/2020,08/12/2019,2018,06/14/2018 PFIZER COVID-19 (ORIGINAL FORMULATION, PURPLE CAP) mRNA, LNP-S, PF, 30 MCG/0.3 ML DOSE 07/30/2021,12/27/2020,12/04/2020 Tdap (Adacel) 04/03/2012 Family History Medical History Relation Comments Breast Cancer Brother Anesthesia problems Father Cancer Father Melanoma Hypertension Father Arthritis Maternal Grandmother Diabetes Maternal Grandmother Cancer Mother Lung Cancer Hypertension Mother Hypertension Paternal Grandfather Asthma Paternal Grandmother Cancer Paternal Grandmother Breast Canc er, bladder cancer Breast Cancer Sister 48yrs old. Dx wi th breast cancer 05/2024 Cancer Sister Breast cancer Relation Status Comments Brother Father Maternal Grandmother Mother Paternal Grandfather Paternal Grandmother Sister Alive Social History Tobacco Use Types Packs/Day Years Used Date Smoking Tobacco: Former Passive Smoke Exposure: Never Smokeless Tobacco: Never Tobacco Cessation:Counseling Given: No Comments:former smoker Alcohol Use Standard Drinks/Week Comments Not Currently 0 (1 standard drink = 0.6 oz pur e alcohol) NA PHQ-2 Answer Date Recorded Patient Health Questionnaire-2 Score 0 01/30/2025 Comments No Sex and Gender Information Value Date Recorded Sex Assigned at Female 05/10/2023 10:06 AM CDT Legal Sex Female 8:16 PM CDT Gender Identity Female 05/10/2023 10:06 AM CDT Sexual Orientation Straight 05/10/2023 10 :06 AM CDT Last Filed Vital Signs Vital Sign Reading Time Taken Comments Blood Pressure 108/70 01/31/2025 7:23 AM CDT Pulse 69 01/31/2025 7:23 AM CDT Temperature 36.8 C (98.2 F) 01/31/2025 7:23 AM CDT Respiratory Rate 18 01/31/2025 7:23 AM CDT Oxygen Saturation 95% 01/31/2025 7:23 AM CDT Inhaled Oxygen Concentration - - Weight 91.4 kg (201 lb 6.4 oz) 01/31/2025 7:23 A M CDT Height 172.7 cm (5' 8) 01/31/2025 7:23 AM CDT Body Mass Index 30.62 01/31/2025 7:23 AM CDT Plan of Treatment Upcoming Encounters Date Type Department Care Team (Late st Contact Info) Description 09/01/2025 8:00 AM CYTOGENETICIST Appointment [facility] [address] [place], [place] [phone] Lucille Aragon, [facility] [address] [facility], [address] [place], [place] [phone] Health Maintenance Due Date Last Done Comments Cervical Cancer Screening Pap Smear (Age 30 to 64) Every 3 Years 1979 Pneumococcal Vaccine: Pediatrics (0 to 5 Years) and At-Risk Patients (6 to 49 Years) (1 of 2 - PCV) 1998 Hepatitis B Vaccines (2 of 3 - 19+ 3-dose series) 01/02/2002 12/05/2001 Cervical Cancer Screening Pap with HPV Testing (Age 30 to 64) Every 5 Years 2009 Cervical Cancer Screening with HPV 2009 DTaP, Tdap and Td Vaccines (3 - Td or Tdap) 04/03/2022 04/03/2012, 04/06/1984 COVID-19 Vaccine ( season) 2025 07/30/2021, 12/27/2020, 12/04/2020 Annual Physical 01/31/2026 01/31/2025 Mammogram Screening 08/30/2026 08/30/2024, 07/24/2023, 07/20/2022, Additional history exists Colorectal Cancer Screening Colonoscopy (10 Years) 04/30/2034 04/30/2024, 04/30/2024 Hepatitis C Completed 01/10/2024 PHQ-2 (Physician Nikolai) Completed 01/30/2025 Influenza Adult Completed 06/19/2025, 05/28, 06/06/2020, Additional history exists Hepatitis A Vaccines Aged Out No long er eligible based on patient's age to complete this topic Meningococcal B Vaccine Aged Out No l onger eligible based on patient's age to complete this topic Meningococcal Vaccine Aged Out No scot amy eligible based on patient's age to complete this topic RSV Immunizations Under 20 Months Aged Out No longer eligible based on patient's age to complete this topic Medical Devices Implanted Type Area Hospital Director Device Identifier Shelf Expiration Date Model / Serial / Lot Screw Screw Right: Ankle Description:10 screws and a plate Procedures Procedure Name Priority Date/Time Associated Diagnosis Comments MG SCREENING W RAJWINDER PARVEEN DIGI Routine 08/30/2024 7:30 AM CYTOGENETICIST Encounter for screening mammogram for breast cancer COLONOSCOPY Routine 04/30/2024 12:03 PM CDT HEPATITIS C ANTIBODY Routine 01/10/2024 8:03 AM CDT Need for hepatitis C screening test from Last 3 Months or Most Recently Relevant to Health Maintenance Results * MG SCREENING W RAJWINDER PARVEEN DIGI (08/30/2024 7:30 AM CYTOGENETICIST) Anatomical Region Laterality Modality Breast Bilateral Mammography 08/30/2024 12:3 4 PM CYTOGENETICIST Impressions 08/30/2024 12:53 PM CYTOGENETICIST IMPRESSION: No significant interval change. No mammographic evidence of malignancy. RECOMMENDATION: Routine ScreeningBilateral OVERALL IMAGING ASSESSMENT: ACR BI-RADS 2 - BENIGN FINDING(S). Ordered By: LUCILLE ARAGON Interpreted By: Umesh Haley, 08/30/2024 12:34 PM Narrative 08/30/2024 12:53 PM CYTOGENETICIST [address] [address] EXAMINATION: MG SCREENING W RAJWINDER PARVEEN DIGI INDICATIONS: Screening TECHNIQUE: Digital full field CC and MLO screening mammography bilaterally to include 3-D Tomosynthesis technique. This study was read with the assistance of a computer-aided detection system. HISTORY: No reported breast complaint. Family history of breast cancer to include brother. No documented personal history of breast cancer or prior breast procedure. COMPARISON: 07/24/2023, 07/20/2022, 07/21/2021, and 07/10/2020. TISSUE DENSITY: There are scattered areas of fibroglandular density. FINDINGS: Few scattered typically benign round calcifications bilaterally. No suspicious microcalcification or mass. No developing asymmetry or architectural distortion. No axillary adenopathy. Lucille Aragon ZYGLO INSPECTOR-BC MAMMO Final Re sult * HEPATITIS C ANTIBODY (01/10/2024 8:03 AM CDT) HEPATITIS C AB NON-REACTI VE NON-REACTI VE 01/10/2024 4:30 PM CDT [facility] 01/10/2024 8:03 AM CDT Lucille Aragon ZYGLO INSPECTOR-BC LABORATORY Final Re sult [facility] [address] [place] [address], [place] [phone] from Last 3 Months or Most Recently Relevant to Health Maintenance Insurance Care Teams Cnmt Relationship Specialty Start Date End Date Lucille Aragon, ZYGLO INSPECTOR-BC [address] [place] [address] PCP - General NURSE PRACTITIONER 04/11/23
--- OUTSIDE RECORDS SUMMARY | 2025-08-11 06:07 | XMS_ITS | Encounter Summary ---
Author Organization [facility] Address [address] [place] [address] Care Team Providers Care Academic Support Assistant Name Role Phone Lucille Aragon [facility] Primary Care Provider + Encounter Details Date Type Department Care Team (Late st Contact Info) Description 01/25/2025 [employer] Message Enc [facility] Medical Group Orthopedic & Sports Medicine - [place] [address] [place], [place] [phone] Bj Ann MD [address] [place] [address] Question Social History Tobacco Use Types Packs/Day [...] AM CDT documented as of this encounter Progress Notes * ADDISON Gomez - 01/27/2025 12:21 PM CDT Looks like she has fairly significant arthritis in her ankle. This is likely what is causing the swelling. It would be appropriate for her to make an appointment with us to be seen for evaluation if her ankle is causing her significant pain. documented in this encounter Plan of Treatment Upcoming Encounters Date Type Department Care Team (Late st Contact Info) Description 09/01/2025 8:00 AM MANAGER SHIP Appointment [facility] [address] [place] [address] Lucille Aragon, [facility]- [address] [facility], [address] [place] [address] documented as of this encounter Visit Diagnoses Not on filedocumented in this encounter Care Teams Academic Support Assistant Relationship Specialty Start Date End Date Lucille Aragon, [facility]- [address] [place] [address] PCP - General NURSE PRACTITIONER 04/11/23 documented as of this encounter
--- OUTSIDE RECORDS SUMMARY | 2025-08-11 06:07 | XMS_ITS | Encounter Summary ---
Author Organization [facility] Address [address] [place] [address] Care Team Providers Care Light Industrial Supervisor Name Role Phone Unavailable Primary Care Provider Unavailabl e Encounter Details Date Type Department Care Team (Late st Contact Info) Description 05/13/2025 Lab Requisition [facility] - DermPath Lab [address] [facility], [place] [phone] Kasey Mcmahan DO [address] [facility] [address] [place] [address] Neoplasm of uncertain behavior of skin Social History Tobacco Use Types Packs/Day Years Used Date Smoking Tobacco: Never Assessed Comments Unknown Sex and Gender Information Value Date Recorded Sex Assigned at Not on file Legal Sex Female 5:03 PM CONFIGURATION MANAGEMENT SPECIALIST Gender Identity Not on file Sexual Orientation Not on file documented as of this encounter Plan of Treatment Not on file documented as of this encounter Procedures Procedure Name Priority Date/Time Associated Diagnosis Comments DERMATOPATHOLOGY Routine 05/13/2025 9:00 AM CDT Neoplasm of uncertain behavior of skin documented in this encounter Results * DERMATOPATHOLOGY (05/13/2025 9:00 AM CDT) Case Report Dermatopathology Report Case: [id number] Authorizing Provider: Kasey Mcmahan DO Collected: 05/13/2025 09:00 AM Ordering Location: [facility] - Received: 05/14/2025 09:20 AM DermPath Lab Pathologist: Miriam Marvin MD Specimen: Skin, left clavicular skin 3:32 PM CDT DERMATOPATHOLOGY LABORATORY Final Diagnosis Specimen A. SKIN, left clavicular skin: BASAL CELL CARCINOMA, PIGMENTED (C44.519) 3:32 PM CDT DERMATOPATHOLOGY LABORATORY at 1532 CDT Clinical History Neoplasm of Uncertain Behavior vs Pigmented BCC 3:32 PM CDT DERMATOPATHOLOGY LABORATORY Gross Description Specimen A: Received is one formalin filled container labeled with the patient's name and designated left clavicular skin. The specimen consists of a shave biopsy measuring 5x4x1 mm. Jar 0. 3:32 PM CDT DERMATOPATHOLOGY LABORATORY Microscopic Description Specimen A. SKIN, left clavicular skin: There are aggregates of basaloid cells with a high nuclear to cytoplasmic ratio and peripheral palisading. There is abundant melanin. 3:32 PM CDT DERMATOPATHOLOGY LABORATORY Disclaimer An external and internal positive and negative controls are appropriate for the histochemical, immunohistochemical and immunofluorescence stain(s) in this case (if any), except where stated explicitly. The performance characteristics of the stain(s) cited in this report were developed and its performance characteristic determined by the Dermatopathology Laboratory at [facility], directed by Dr. Brittany Marvin. These tests need not be, and therefore are not, approved by the [place] Food and Drug Administration. The tests are used for clinical purposes. Billing Codes Specimen Charges Stain Charges 90683 1 3:32 PM CDT DERMATOPATHOLOGY LABORATORY Embedded Images 3:32 PM CDT DERMATOPATHOLOGY LABORATORY Pathology/Cytolo gy TISSUE SPECIMEN FROM SKIN / Unknown 05/13/2025 9:00 AM CDT 05/14/2025 9:20 AM CDT us Kasey Mcmahan DO LAB - PATHOLOGY/CYTOLOGY ORDERABLES Final Result DERMATOPATHOLOGY LABORATORY [facility] - Department of Dermatology [address] [place] [address], [facility] [phone] documented in this encounter Visit Diagnoses Diagnosis Neoplasm of uncertain behavior of skin documented in this encounter
--- OUTSIDE RECORDS SUMMARY | 2025-08-11 06:07 | XMS_ITS | Clinical Summary ---
Author Organization [facility] Address [address] [place] [address] Phone Care Team Providers Care Sample Tester Name Role Phone Unavailable Primary Care Provider Unavailabl e Social History Tobacco Use Types Packs/Day Years Used Date Smoking Tobacco: Never Assessed Comments Unknown Sex and Gender Information Value Date Recorded Sex Assigned at Not on file Legal Sex Female 8:36 AM SAUTE CHEF Gender Identity Not on file Sexual Orientation Not on file Plan of Treatment Health Maintenance Due Date Last Done Comments Hepatitis C Virus (HCV) Screening 1979 TdaP Immunization 1979 Hepatitis B Immunization (1 of 3 - 19+ 3-dose series) 1998 Pap Smear 2000 Human Papillomavirus (HPV) Immunization (1 - 3-dose SCDM series) 2006 Cervical Cancer Screening (CCS) 2009 HPV/Cotest 2009 Cologuard 2024 Colonoscopy 2024 Colorectal Cancer Screening 2024 Immunochemical Fecal Occult Blood 2024 Influenza Immunization (#1) 04/28/202505/28, 07/12/2019, 06/14/2018 SARS-COV-2 Immunization ( season) 2025 Respiratory Syncytial Virus (RSV) Immunization (Adult) (1 - 1-dose 75+ series) 2054 Meningococcal Immunization (ACWY) Aged Out No longer eligible b ased on patient's age to complete this topic Pneumococcal Immunization Combined Aged Out No longer eligible b ased on patient's age to complete this topic Rotavirus Immunization Aged Out No lo nger eligible based on patient's age to complete this topic
[2025-08-11] MEDS: LACTATED RINGERS 1,000 ML 30 ML IV CONT (06:15)
[2025-08-11] MEDS: ACETAMINOPHEN 500 MG TABLET 1000 MG PO (06:15)
--- NOTE | 2025-08-11 06:41 | WPDANESEPPF ---
Anes - Initial Pre Proc Eval Procedure: Operation Date: 08/11/25 07:30 Proposed Procedures p Hysteroscopy Dilation and Curettage - Georgina العراقي MD Date/Time: 08/11/25 06:41 Surgeon: Georgina العراقي MD Pre Op Diagnosis: menorrhagia Patient Data Age: 45 Gender: F Height: 1.73 m Weight: 95.5 kg Allergies Allergy/AdvReac Type Severity Reaction Status Date / Time No Known Allergies Allergy Verified 08/06/25 11:49 Home Medications ?Medication ?Instructions ?Recorded ?Confirmed ?Type montelukast 10 mg tablet 10 mg PO DAILY 08/06/25 08/06/25 History multivitamin (Daily Multi-Vitamin 1 tablet PO DAILY 08/06/25 08/06/25 History tablet) Patient hx anesthesia problems: none Family hx anesthesia problems: none Results Review: All pre-operative results and documents have been reviewed as part of the pre-operative evaluation. [facility] Past Medical History Medical History (Updated 08/11/25 @ 06:42 by Peter Meyer MD) KYRA on CPAP Surgical History Surgical History (Updated 08/11/25 @ 06:42 by Peter Meyer MD) History of ankle surgery Social History Social History Smoking status: Never smoker Substance use: never Living arrangements: with family Spiritual care concerns: No Anes - Eval Final PreProcedure Day of Procedure 08/11/25 06:41 Patient weight: obese Heart: regular rate and rhythm Lungs: clear to auscultation Airway: Mallampati scale class II Neurological: alert and oriented Last oral intake: >/= 8 hours ASA classification: III Emergent: no Anesthetic plan: proceed Anesthesia type and monitoring: general GIVS and standard monitoring Results Review: All pre-operative results and documents have been reviewed as part of the pre-operative evaluation. Informed Consent: The patient's anesthetic plan and its attendant risks and benefits were discussed with the patient/family/POA. Questions were solicited and answers provided to the satisfaction of the patient/family/POA.
[2025-08-11 06:47] VITALS: BP 131/81; PULSE 81; TEMP 36.9; O2SAT 98; BMI 32.8
[2025-08-11 07:02] LABS: BEDSIDEPREGUCG Negative (Negative)
--- NOTE | 2025-08-11 07:22 | WPDHPUPDATE1 ---
History and Physical Update Update Date/Time: 08/11/25 07:22 History and Physical has been reviewed, including an updated exam of the patient. There are NO changes in the patient's condition. Risks, benefits, and alternatives have been discussed and questions answered. Patient agrees to proceed with procedure.
--- NOTE | 2025-08-11 07:22 | PM.HPGS ---
History of Present Illness History of Present Illness Consent: Risks, benefits, and alternatives have been discussed and questions answered. Patient agrees to proceed with procedure. Chief complaint: menorrhagia Narrative: Alisa Hernandez is a 45 year old female with heavy cycles. It was recommended to undergo D&C hysteroscopy. Risks of infection, bleeding, perforation, and possible pathology are reviewed. Patient voices understanding and agrees to proceed. Review of Systems Review of Systems: not repeated day of surgery; patient states no changes in status PMF Past Medical History Medical History (Updated 08/11/25 @ 07:24 by Georgina العراقي MD) (normal spontaneous vaginal delivery) X2 KYRA on CPAP Surgical History Surgical History (Updated 08/11/25 @ 07:24 by Georgina العراقي MD) History of foot surgery 1979 History of ankle surgery 2014 Social History Social History Smoking status: Never smoker Substance use: never Living arrangements: with family Spiritual care concerns: No Meds Home Medications and Allergies Home Medications ?Medication ?Instructions ?Recorded ?Confirmed ?Type montelukast 10 mg tablet 10 mg PO DAILY 08/06/25 08/06/25 History multivitamin (Daily Multi-Vitamin 1 tablet PO DAILY 08/06/25 08/06/25 History tablet) Allergies Allergy/AdvReac Type Severity Reaction Status Date / Time No Known Allergies Allergy Verified 08/06/25 11:49 Vital Signs Vital Signs - 24 hr 08/11/25 06:47 Temperature 98.5 F Pulse Rate 81 Blood Pressure 131/81 Pulse Oximetry 98 Oxygen Delivery Room Air Exam Const: General: healthy appearing, alert and obese (BMI 33) Orientation/consciousness: patient oriented x3 Resp: Effort & Inspection: normal respiratory effort Auscultation: clear to auscultation bilaterally Cardio: Rate: regular rate Rhythm: regular rhythm GI: GI Palp: Yes Soft to palpation, No Tenderness to palpation present (GI) and No Palpable mass present : External Female Exam: normal external appearance Speculum Exam - Vagina: normal appearance of the vagina and normal vaginal discharge Speculum Exam - Cervix: normal appearance of the cervix Bimanual exam- vagina & uterus: uterine size normal and consistency normal Bimanual Exam- Adnexa, other: normal adnexae and No adnexal tenderness Neuro: General: patient oriented x3 Assessment and Plan Assessment and plan (1) Menorrhagia: Code(s): N92.0 - Excessive and frequent menstruation with regular cycle Status: Acute Assessment and Plan: Plan to proceed with D&C hysteroscopy
--- NOTE | 2025-08-11 07:44 | S_PTH ---
PATIENT: Alisa Hernandez LOC: [facility]#:[id number] AGE/SX: 45/F ROOM: RE08/11/[address]: Georgina العراقي MD : 1980 BED: DIS: 08/11/2025 SPEC #: [id number] RECD: 08/11/25 10:12 STATUS: ASMITA REQ #: [id number] THERON: 08/11/25 07:[address]: Georgina العراقي DEPT: [facility] Surgical RECD BY: Jeanine Pate Tissues: A - Endometrial Curettings Procedures: Hematoxylin and Eosin Stain Gross and Microscopic Level 4
[2025-08-11 07:50] VITALS: BP 116/60; PULSE 81; RESP 14; O2SAT 98
--- NOTE | 2025-08-11 07:57 | W.PM.PROC2 ---
Procedure Note - Detailed Date of Procedure 08/11/25 Pre-op Diagnosis menorrhagia Post-op Diagnosis Same Procedure Performed D&C hysteroscopy Surgeon Georgina العراقي MD Anesthesia MAC Findings The uterus sounds to 10cm and appears grossly normal Description of Procedure The patient was taken to the operating room and placed under anesthesia in the dorsal lithotomy position. She was prepped and draped in the usual sterile fashion. Aurora speculum was placed in the vagina and the cervix grasped on the anterior lip with tenaculum. The uterus is sounded to 10cm. The diagnostic hysteroscope was placed and with the above-stated findings it was removed. The endometrium was curetted with a sharp curette until a good uterine cry was noted in all areas. Instruments are removed. Sponge, needle, and instrument counts are correct per the OR staff. The patient was taken to recovery in stable condition. Estimated Blood Loss 5 Drains No Packing No Pathology Yes (Endometrial curettings) Complications No immediate complications Condition Stable Disposition PACU
[2025-08-11 08:20] VITALS: BP 110/57; PULSE 71
[2025-08-11 08:45] VITALS: BP 108/63; PULSE 68
== END 2025-08-11 08:55 | disposition home or self-care (01) ==
PROVIDERS: Visit Provider Obstetrics & Gynecology Gynecology
PROC: 0U5B8ZZ Destruction of Endometrium, Via Natural or Artificial Opening Endoscopic (ICD-10-PCS; CPT 58563; principal; 2025-08-11 07:30)
DX: N85.8 Other specified noninflammatory disorders of uterus (principal); G47.33 Obstructive sleep apnea (adult) (pediatric); E66.9 Obesity, unspecified; Z68.32 Body mass index [BMI] 32.0-32.9, adult; Z99.89 Dependence on other enabling machines and devices; Z98.890 Other specified postprocedural states
CPT/HCPCS: 58558; 88305; A9270; J2250; J2704; J3010; J7120